=== PATIENT | female | born 1950 | race Caucasian/White ===

== ENCOUNTER 2019-04-25 07:16 | Day surgery (SDC) | payer MEDICARE ==
[2019-04-25] MEDS ORDERED: Sodium Chloride 0.9% 1,000 ML IV SCH (07:45)
[2019-04-25] MEDS ORDERED: Propofol 200 MG/20 ML SDV ONE (07:48)
[2019-04-25] MEDS ORDERED: Midazolam 1 MG/ML 2 ML SDV ONE (07:48)
[2019-04-25] MEDS ORDERED: fentaNYL 100 MCG/2 ML SDV ONE (07:48)
--- NOTE | 2019-04-25 14:17 | OR ---
DATE OF PROCEDURE: 04/25/2019 SURGEON: Dedrick Diaz MD PROCEDURE: Colonoscopy. FINDINGS: 1. Transverse colon polyp, approximately 1 cm, completely removed using hot snare loop device. 2. Descending colon polyp, approximately 5 mm, completely removed using hot snare loop device. 3. Diverticulosis, mild, limited to sigmoid colon, without evidence of diverticulitis or diverticulosis. COMPLICATIONS: None. PARTS PROFESSIONAL: None. PREOPERATIVE DIAGNOSIS: Positive FIT test. POSTOPERATIVE DIAGNOSIS: Positive FIT test. RISKS: Risks, benefits, alternatives, and limitations including, but not limited to infection, bleeding, and perforation were explained to the patient, who wished to proceed. PROCEDURE IN DETAIL: The patient was placed in left lateral decubitus position. Digital rectal exam was performed without abnormality. The scope was introduced and advanced atraumatically to the ileocecal valve. The ileocecal valve was also entered. No evidence of inflammation in the ileum. The scope was brought back to the ascending, transverse, descending colon, and retroflexed. The aforementioned polyps were identified and completely removed. No abnormal bleeding was noted after removal. Diverticulosis, described as mild, limited to sigmoid colon, without evidence of diverticulitis or bleeding. On retroflexion, there were no abnormalities. The patient tolerated the procedure well. Dedrick Diaz MD /[id number]
== END 2019-04-25 10:15 | disposition home or self-care (01) ==
LOC: JP.SDS 07:16
PROVIDERS: ATTEND Surgery
DX: D12.3 Benign neoplasm of transverse colon (principal); D12.4 Benign neoplasm of descending colon; K57.30 Diverticulosis of large intestine without perforation or abscess without bleeding; J45.909 Unspecified asthma, uncomplicated; E11.9 Type 2 diabetes mellitus without complications; Z91.040 Latex allergy status
CPT/HCPCS: 45385; J2250; J2704; J3010; J7030; 88305